=== PATIENT | male | born 1960 | race Caucasian/White ===

== ENCOUNTER → 2019-09-11 | Outpatient (CLI) | payer OTHER ==
--- NOTE | 2019-09-11 15:02 | BD ---
EXAMINATION TYPE: Axial Bone Density DATE OF EXAM: 09/11/2019 COMPARISON: NONE CLINICAL HISTORY: Height: 5 FT 9 IN Weight: 179 FRAX RISK QUESTIONS: Alcohol (3 or more units per day): NO Family History (Parent hip fracture): NO Glucocorticoids (More than 3mos): NO (Ex: prednisone, prednisolone, methylprednisolone, dexamethasone, and hydrocortisone). History of Fracture in Adulthood: YES Secondary Osteoporosis: 1. Type 1 Diabetes: NO 2. Hyperthyroidism: NO 3. Menopause before 45: NA 4. Malnutrition: NO 5. Chronic liver disease: NO Rheumatoid Arthritis: NO Current Tobacco Use: YES RISK FACTORS HISTORY OF: Hip Fracture (Right/Left): RT When: 11 YEARS AGO Spine Fracture: LUMBAR When: 18 YEARS AGO Surgery to Spine/Hip(right/left)/Wrist (right/left): LUMBAR When: 18 YEARS AGO Active: YES Lost more than 2 inches in height since high school: YES MEDICATIONS: Additional Medications: B12 INJ Additional History: MULTIPLE FX OVER THE YEARS , GASTRIC BYPASS 13-14 YEARS AGO EXAM MEASUREMENTS: Bone mineral density about the L hip (g/cm2): 1.149 T Score values are as follows: -----L Neck: 0.8 -----L Total: 0.3 BASELINE Bone mineral density about the L Wrist (g/cm2): 0.703 T Score values are as follows: -----Dist. R+U: 0.1 -----Prox. R+U: -1.1 -----Radius total: -0.7 BASELINE IMPRESSION: Osteopenia (T Score between -2.5 and -1) proximal aspect of the wrist. There is slightly increased risk of fracture and the patient may be considered for treatment. Re-Screen 2-5 years. NOTE: T-SCORE=SD OF THE YOUNG ADULT MEAN.
== END | disposition home or self-care (01) ==
LOC: RADBDWWP 14:30
PROVIDERS: ATTEND Family Medicine
DX: M85.88 Other specified disorders of bone density and structure, other site (principal)
CPT/HCPCS: 77080